=== PATIENT | male | born 1935 | race Caucasian/White ===

== ENCOUNTER 2020-07-06 13:30 | Outpatient (CLI) | payer MEDICARE, BC, OTHER | END 2020-07-06 13:31 | disposition home or self-care (01) | LOC: CSHMRI 13:30 | PROVIDERS: ATTEND Family Medicine | DX: M54.16 Radiculopathy, lumbar region (principal); M51.9 Unspecified thoracic, thoracolumbar and lumbosacral intervertebral disc disorder; M47.816 Spondylosis without myelopathy or radiculopathy, lumbar region | CPT/HCPCS: 72148 ==